=== PATIENT | male | born 1995 | race Caucasian/White ===

== ENCOUNTER 2017-01-07 08:26 | Emergency (ER) | payer BC, OTHER ==
[~2017-01-07] VITALS: Ht 177.8 cm; Wt 61.0 kg
[~2017-01-07 08:26] MED LIST: AMOXICILLIN SUSP PO
[2017-01-07 08:29] VITALS: TEMP 36.2; Ht 177.8 cm; Wt 61.0 kg
[2017-01-07] MEDS ORDERED: OXYCODONE/ACETAMINOPHEN 5-325 TAB PO ONE (08:45)
[2017-01-07] MEDS ORDERED: IBUPROFEN 600 MG TAB PO STA (08:45)
--- NOTE | 2017-01-07 08:45 | EMERGENCY ROOM VISIT NOTE ---
History Report prepared by Scribpawel: Cooper Wu Under the Supervision of: Dr. Fabien Choi M.D. First contact with patient: 08:32 Chief Complaint: RIB PAIN Stated Complaint: RIGHT RIB PAIN History of Present Illness The patient is a 21 year old male who presents to the Emergency Room with complaints of persistent right rib pain since yesterday. The pain is worsened when the patient coughs and is rated 7/10 in severity. The patient injured his ribs at Judo yesterday when another athlete's elbow drove into his ribs. The patient has not taken anything for pain. Source of History: patient Onset: yesterday Position: other (right ribs) Symptom Intensity: 7/10 Quality: other (injury) Timing: other (persistent) Modifying Factors (Worsening): other (coughing) Review of Systems See HPI for pertinent positives & negatives. A total of 10 systems reviewed and were otherwise negative. Past Medical & Surgical Medical Problems: (1) Avulsion of skin of right thumb Family History Diabetes mellitus Hypertension Social History Smoking Status: Never Smoker Housing Status: lives with family Occupation Status: [employer] student Current/Historical Medications Scheduled Paroxetine HCl (Paroxetine), 1 TAB PO DAILY Scheduled PRN Oxycodone/Acetaminophen 5MG/325MG (Percocet 5MG/325MG), 1-2 TAB PO Q4H PRN for Pain Allergies Coded Allergies: No Known Allergies (Unverified , 01/07/17) Physical Exam Vital Signs Date Time Temp Pulse Resp B/P Pulse Ox O2 Delivery O2 Flow Rate FiO2 01/07/17 10:10 63 16 116/71 99 01/07/17 08:29 36.2 59 18 129/78 99 Room Air Physical Exam GENERAL: Patient is a healthy-appearing well-nourished HEAD: Normocephalic atraumatic EYES: Ocular movements intact pupils equal and react to light OROPHARYNX mucous membranes are moist no exudates present no erythema or edema present NECK: Supple no nuchal rigidity CHEST: Good equal expansion. Tender to the right 10th rib area. LUNGS: Clear and equal to auscultation CARDIAC: Normal S1 and S2 ABDOMEN: Soft nontender no guarding BACK: No CVA tenderness EXTREMITIES: No pain upon palpation normal muscle strength in all groups no clubbing cyanosis or edema NEURO: Patient is following commands is answering questions appropriately. Alert and oriented x3 Cranial Nerves 2-12 grossly intact Medical Decision & Procedures ER Provider Diagnostic Interpretation: X-ray results as stated below per interpretation by me and the radiologist: RIGHT RIBS UNILATERAL WITH PA CHEST CLINICAL HISTORY: Right sided rib pain following injury. COMPARISON STUDY: No previous studies for comparison. FINDINGS: There is no pneumothorax or pleural effusion. Lungs are clear. Cardiac size is normal. Mediastinal contours are normal. No acute right-sided rib fractures are identified. IMPRESSION: No pneumothorax. No acute right rib fractures identified. Electronically signed by: Radhames English M.D. 01/07/2017 9:34 AM Dictated Date/Time: 01/07/2017 9:29 AM Medications Administered Medications (Trade) Dose Ordered Sig/Alberta Route Start Time Stop Time Status Last Admin Dose Admin Ibuprofen (Motrin Tab) 600 mg NOW STAT PO 01/07/17 08:45 01/07/17 08:46 DC 01/07/17 09:01 600 MG Oxycodone/ Acetaminophen (Percocet 5/ 325MG Home Pack) 1 homepack UD ONCE PO 01/07/17 10:00 01/07/17 10:01 DC 01/07/17 10:07 1 HOMEPACK ED Course 0842: Past medical records reviewed. The patient was evaluated in room A10. A complete history and physical examination was performed. 0845: Ibuprofen 600 mg PO. 1000: Percocet 5/325 mg PO home pack. 1000: Upon reexamination the patient is feeling better. I discussed results and treatment plan with the patient. He verbalizes agreement and understanding. The patient is ready for discharge. Medical Decision Differential diagnosis: Chest wall pain, rib contusion, rib fracture, costochondritis. This is a 21-year-old male who presents emergency department complaining of right rib pain after judo practice. The patient is tender to the right 10th rib area. He was sent for x-rays which did not show any acute fracture however I will treat the patient's pain. He was given Motrin as well as Percocet in the emergency department. Repeat examination revealed improvement patient's symptoms. The patient was also given incentive spirometer to avoid pneumonia. Patient was in agreement with the treatment plan. Impression Primary Impression: Rib pain on right side Scribe Attestation The scribe's documentation has been prepared under my direction and personally reviewed by me in its entirety. I confirm that the note above accurately reflects all work, treatment, procedures, and medical decision making performed by me. Departure Information Dispostion Home / Self-Care Prescriptions Oxycodone/Acetaminophen 5MG/325MG (PERCOCET 5MG/325MG) Tab 1-2 TAB PO Q4H Y for Pain, #14 TAB Prov: Fabien Choi MD 01/07/17 Referrals No Doctor, Assigned (PCP) Forms HOME CARE DOCUMENTATION FORM, IMPORTANT VISIT INFORMATION, WORK / SCHOOL INSTRUCTIONS Patient Instructions ED Contusion Rib, ED Contusion Vs Minor Fx Rib, My [facility] Additional Instructions Use incentive spirometer every 15 mins You received narcotic or benzodiazepene medication while in the emergency room today. Do not drive, operate heavy machinery, or drink alcohol under the influence of this medication. Take 600 mg Ibuprofen every 6 hours Take Percocet for breakthrough pain You have been examined and treated today on an emergency basis only. This is not a substitute for, or an effort to provide, complete comprehensive medical care. It is impossible to recognize and treat all injuries or illnesses in a single emergency department visit. It is therefore important that you follow up closely with [facility]. Call as soon as possible for an appointment. Thank you for your time and consideration. I look forward to speaking with you again soon. Please don't hesitate to call us if you have any questions.
[2017-01-07] MEDS ORDERED: PARO20TA3 PO (08:56)
--- NOTE | 2017-01-07 09:35 | DIAGNOSTIC IMAGING REPORT ---
RIGHT RIBS UNILATERAL WITH PA CHEST CLINICAL HISTORY: Right sided rib pain following injury. COMPARISON STUDY: No previous studies for comparison. FINDINGS: There is no pneumothorax or pleural effusion. Lungs are clear. Cardiac size is normal. Mediastinal contours are normal. No acute right-sided rib fractures are identified. IMPRESSION: No pneumothorax. No acute right rib fractures identified. Electronically signed by: Radhames English M.D. 01/07/2017 9:34 AM Dictated Date/Time: 01/07/2017 9:29 AM
[2017-01-07] MEDS ORDERED: OXYC-57 PO (09:50)
[2017-01-07] MEDS ORDERED: PERCOCET HOME PACK PO ONE (10:00)
[2017-01-07 10:10] VITALS: BP 116/71; PULSE 63; O2SAT 99
== END 2017-01-07 10:26 | disposition home or self-care (01) ==
LOC: C.EDB 08:27 → C.EDA 10:26
DX: R07.81 Pleurodynia (principal); Z83.3 Family history of diabetes mellitus; Z82.49 Family history of ischemic heart disease and other diseases of the circulatory system